=== PATIENT | male | born 1940 | race Caucasian/White ===

== ENCOUNTER 2018-10-26 06:57 | Day surgery (SDC) | payer MEDICARE, OTHER ==
[2018-10-26] MEDS ORDERED: Lidocaine 2% 100 MG/5 ML Syringe IVPUSH ONE (06:58)
[2018-10-26] MEDS ORDERED: Propofol 200 MG/20 ML SDV IV ONE (06:58)
[2018-10-26] MEDS ORDERED: Lactated Ringers 1,000 ML IV SCH (07:15)
--- NOTE | 2018-10-26 08:44 | PCM.OPNOTE ---
- General Post-Op/Procedure Note Date of Surgery/Procedure: 10/26/18 Operative Procedure(s): egd with bx Findings: irregular z line Pre Op Diagnosis: dysphagia Post-Op Diagnosis: irregular z line Anesthesia Technique: MAC Primary Surgeon: Maximo Carrasquillo Anesthesia Provider: Yeu Walls Pathology: distal esophagus Complications: None Condition: Good Free Text/Narrative:: see dictation
--- NOTE | 2018-10-26 08:57 | OR ---
DATE OF OPERATION: 10/26/2018 SURGEON: Maximo Carrasquillo MD PROCEDURE PERFORMED: Esophagogastroduodenoscopy with cold forceps biopsy. PREOPERATIVE DIAGNOSIS: History of dysphagia. POSTOPERATIVE DIAGNOSIS: Irregular Z-line. INDICATIONS FOR PROCEDURE: This is an 78-year-old white male who presents with the above mentioned complaints. He was offered and accepted an esophagogastroduodenoscopy. DESCRIPTION OF OPERATION: After an excellent IV sedation was administered, bite block was inserted. Flexible endoscope was passed without difficulty down the patient's esophagus into the stomach. Stomach was insufflated. Scope was passed through the pylorus, second portion of the duodenum, and slowly withdrawn. Following findings were noted. Duodenum is unremarkable. Stomach is unremarkable. GE junction measured approximately 50 cm, and there was some irregularity of the Z-line noted. Biopsies were taken. Remainder of the esophageal exam was unremarkable. The patient tolerated the procedure well and was taken to recovery. /[id number] /ALETHEAL
[2018-10-26 09:36] VITALS: BP 134/93; PULSE 61
== END 2018-10-26 09:42 | disposition home or self-care (01) ==
LOC: FB.SDS 06:57
PROVIDERS: ATTEND Surgery
DX: K20.9 Esophagitis, unspecified (principal); I12.9 Hypertensive chronic kidney disease with stage 1 through stage 4 chronic kidney disease, or unspecified chronic kidney disease; N18.3 Chronic kidney disease, stage 3 (moderate); I71.4 Abdominal aortic aneurysm, without rupture; I25.2 Old myocardial infarction; E78.2 Mixed hyperlipidemia; G47.30 Sleep apnea, unspecified; E66.9 Obesity, unspecified; Z68.34 Body mass index [BMI] 34.0-34.9, adult; Z88.1 Allergy status to other antibiotic agents; Z88.8 Allergy status to other drugs, medicaments and biological substances; Z99.89 Dependence on other enabling machines and devices; Z86.010 Personal history of colon polyps; Z86.718 Personal history of other venous thrombosis and embolism; Z87.891 Personal history of nicotine dependence; Z79.899 Other long term (current) drug therapy
CPT/HCPCS: 00731; 43239; 88305; 88313; J2001; J2704; J7120

== ENCOUNTER 2022-06-14 09:11 | Emergency (ER) | payer MEDICARE, OTHER ==
[2022-06-14 11:01] VITALS: BP 139/70; PULSE 77
== END 2022-06-14 11:20 | disposition home or self-care (01) ==
LOC: FB.ED 09:11
DX: S00.83XA Contusion of other part of head, initial encounter (principal); S20.229A Contusion of unspecified back wall of thorax, initial encounter; E78.00 Pure hypercholesterolemia, unspecified; I10 Essential (primary) hypertension; I25.2 Old myocardial infarction; K21.9 Gastro-esophageal reflux disease without esophagitis; Z88.1 Allergy status to other antibiotic agents; Z88.8 Allergy status to other drugs, medicaments and biological substances; Z79.82 Long term (current) use of aspirin; Z79.899 Other long term (current) drug therapy; W01.198A Fall on same level from slipping, tripping and stumbling with subsequent striking against other object, initial encounter
CPT/HCPCS: 70450; 72072; 72100; 72125; 99284

== ENCOUNTER 2022-06-17 19:27 | Emergency (ER) | payer MEDICARE, OTHER ==
[2022-06-17] MEDS ORDERED: Morphine Oral Concentrate 20 MG/ML 30 ML Bottle PO ONE (19:28)
[2022-06-17] MEDS ORDERED: LORazepam Conc Solution 2 MG/ML 30 ML Bottle PO ONE (19:28)
[2022-06-17 20:23] LABS: ESTIMATED GFR 20 mL/min (>60)
[2022-06-17 20:48] LABS: CORONAVIRUS COVID-19 NAA NEGATIVE (NEGATIVE)
[2022-06-17] MEDS ORDERED: Acetaminophen 500 MG Tab PO ONE (21:50)
[2022-06-17] MEDS ORDERED: Morphine 10 MG/0.5 ML Oral Syringe PO ONE (22:02)
[2022-06-17] MEDS ORDERED: LORazepam 0.5 MG Tab PO PRN (22:02)
[2022-06-17] MEDS ORDERED: Morphine 4 MG/ML VIAL IM ONE (22:10)
[2022-06-18 00:57] VITALS: BP 143/66; PULSE 100
== END 2022-06-17 23:50 | disposition home or self-care (01) ==
LOC: FB.ED 19:27
DX: I12.0 Hypertensive chronic kidney disease with stage 5 chronic kidney disease or end stage renal disease (principal); N18.6 End stage renal disease; E78.00 Pure hypercholesterolemia, unspecified; I25.2 Old myocardial infarction; K21.9 Gastro-esophageal reflux disease without esophagitis; Z88.1 Allergy status to other antibiotic agents; Z79.899 Other long term (current) drug therapy; Z79.82 Long term (current) use of aspirin; Z20.822 Contact with and (suspected) exposure to COVID-19
CPT/HCPCS: 0241U; 36415; 51702; 71045; 73030-RT; 80053; 81001; 83605; 85025; 86140; 87040; 96372; 99285; A9270-GY; J2270